=== PATIENT | female | born 1985 | race Caucasian/White ===

== ENCOUNTER → 2016-11-26 23:30 | Emergency (ER) | payer OTHER ==
[~2016-11-26 23:30] MED LIST: MACROBID100 MG PO; PRENATAL1 TA1 PO; VOLTAREN75 MG PO; ZOFRAN ODT4 MG SL
== END | disposition left against medical advice (07) ==
LOC: CFTX 23:30
DX: Z53.21 Procedure and treatment not carried out due to patient leaving prior to being seen by health care provider (principal)

== ENCOUNTER 2017-03-25 17:59 | Emergency (ER) | payer OTHER ==
[~2017-03-25] VITALS: Ht 160 cm; Wt 54.4 kg
== END 2017-03-25 18:58 | disposition left against medical advice (07) ==
LOC: CED 17:59
DX: T40.1X1A Poisoning by heroin, accidental (unintentional), initial encounter (principal)
CPT/HCPCS: 96374; 99284; J2310